=== PATIENT | female | born 1985 | race Two or more races ===

== ENCOUNTER 2019-02-02 11:03 | Emergency (ER) | payer SELFPAY ==
[~2019-02-02] VITALS: Ht 157.5 cm; Wt 63.5 kg
[2019-02-02 11:37] VITALS: BP 132/84
== END 2019-02-02 13:06 | disposition home or self-care (01) ==
LOC: ER 11:03
DX: S01.511D Laceration without foreign body of lip, subsequent encounter (principal); X58.XXXD Exposure to other specified factors, subsequent encounter
CPT/HCPCS: 12011